=== PATIENT | female | born 1975 | race African-American/Black ===

== ENCOUNTER 2021-11-30 17:54 | Emergency (ER) | payer OTHER ==
[2021-11-30 18:25] VITALS: BP 141/86; PULSE 78; RESP 16; TEMP 98.8; BMI 33.6
[2021-11-30] MEDS ORDERED: KETOROLAC TROMETHAMINE 30 MG/1 ML VIAL IM ONE (18:30)
[2021-11-30] MEDS ORDERED: LIDOCAINE 5% TOPICAL PATCH TP ONE (18:30)
[2021-11-30] MEDS ORDERED: LIDOCAINE 5% TOPICAL PATCH ONE (18:36)
[2021-11-30] MEDS ORDERED: KETOROLAC TROMETHAMINE 30 MG/1 ML VIAL ONE (18:36)
[2021-11-30] MEDS ORDERED: CYCLOBENZAPRINE HCL 5 MG TABLET PO ONE (19:03)
[2021-11-30] MEDS ORDERED: CYCLOBENZAPRINE HCL 5 MG TABLET ONE (19:10)
== END 2021-11-30 21:07 | disposition home or self-care (01) ==
LOC: FER 17:54
PROC: 3E0233Z Introduction of Anti-inflammatory into Muscle, Percutaneous Approach (ICD-10-PCS; principal; 2021-11-30)
DX: S16.1XXA Strain of muscle, fascia and tendon at neck level, initial encounter (principal); S39.012A Strain of muscle, fascia and tendon of lower back, initial encounter; V43.52XA Car driver injured in collision with other type car in traffic accident, initial encounter
CPT/HCPCS: 72050-TC-FY; 72070-TC-FY; 72100-TC-FY; 99285-25